=== PATIENT | male | born 1995 | race Caucasian/White ===

== ENCOUNTER 2022-11-20 20:17 | Emergency (ER) | payer OTHER, SELFPAY ==
--- NOTE | ~2022-11-20 | CT_ITS ---
EXAMINATION: CT HEAD WITHOUT CONTRAST CLINICAL INFORMATION: Headache status-post injury. COMPARISON: None available. TECHNIQUE: Contiguous axial imaging was performed from the skull base to vertex without intravenous administration of contrast. This CT examination was performed using dose optimization techniques as appropriate, variously including the following: *Automated exposure control *Adjustment of mA and/or kV according to patient size (this includes techniques or standardized protocols for targeted exams where dose is matched to indication/reason for exam; i.e. extremities or head) *Use of iterative reconstruction technique DLP: 1039 mGy-cm (head and facial bones) FINDINGS: There is no acute intracranial hemorrhage or evidence of territorial infarction. No abnormal mass effect or midline shift is seen. Bolanos to white matter differentiation is well preserved. There is no abnormal attenuation within the brain parenchyma. The ventricles are normal in size. No extra-axial fluid collections are identified. The calvarium and scalp soft tissues are normal. The middle ear cavity and mastoid air cells are clear. There is mild bilateral ethmoid and maxillary sinusitis. A small osteoma is seen posteriorly within the left maxillary sinus. CT/CT facial bones wo IV con IMPRESSION: 1. No acute intracranial pathology. 2. There is paranasal sinusitis. EXAMINATION: CT FACIAL BONES WITHOUT CONTRAST CLINICAL INFORMATION: Facial pain status-post injury. COMPARISON: None available. TECHNIQUE: Contiguous axial imaging was performed through the facial bones without intravenous administration of contrast. Multiplanar reformatted images are submitted. This CT examination was performed using dose optimization techniques as appropriate, variously including the following: *Automated exposure control *Adjustment of mA and/or kV according to patient size (this includes techniques or standardized protocols for targeted exams where dose is matched to indication/reason for exam; i.e. extremities or head) *Use of iterative reconstruction technique DLP: As above. FINDINGS: The paranasal sinuses are well aerated. The ostiomeatal units are patent. No fracture or dislocation is seen. The zygomatic arches are intact. The mandible is intact. The mandibular fossa is intact. There is asymmetric anterior subluxation of the left mandibular condyle within the glenoid fossa (15:32 and 16:151). The orbits and orbital contents are symmetric and unremarkable. The lamina papyracea are intact. There is mild bilateral ethmoid and maxillary sinusitis. The mastoid coils air cells are well aerated and clear. IMPRESSION: 1. There is anterior subluxation of the left mandibular condyle within the glenoid fossa. No keshav dislocation is seen. 2. There is no acute fracture noted. 3. There is paranasal sinusitis.
[2022-11-20 20:22] VITALS: BP 135/64; PULSE 82; RESP 18; TEMP 36.9; O2SAT 98; BMI 28.9
--- NOTE | 2022-11-20 20:34 | ED_ITS ---
HPI - General Adult General Chief complaint: General Medical Stated complaint: jaw pain Time Seen by Provider: 11/20/22 21:06 Source: patient Mode of arrival: ambulatory Limitations: no limitations History of Present Illness HPI narrative: Patient is a 27 year old assigned male at with no reported medical history presenting to the emergency department today with left sided jaw pain. Patient states that he was boxing earlier today and got punched while his mouth was open. Patient states that now his jaw feels like it is uneven and he cannot chew appropriately. Patient denies any dizziness, lightheadedness, abdominal pain, nausea, vomiting, fever, chills, blurry vision, double vision, loss of vision, chest pain, difficulty breathing, shortness of breath, back pain, night sweats, pain with urination, increased urinary frequency, increased urinary urgency, blood in his urine or stool, syncope or a near syncopal episode, bowel incontinence, bladder incontinence, bowel retention, bladder retention, or any other complaints at this time. Onset (ago): hour(s) Location: face Radiation: non-radiation Severity: mild Severity scale (1-10): 3 Quality: aching and dull Pain Consistency: constant Relieving factors: none Exacerbating factors: none Associated symptoms: denies other symptoms Treatments prior to arrival: none Related Data Previous Rx's Medication Instructions Recorded ibuprofen 800 mg tablet 800 mg PO Q8H PRN pain #14 tabs 11/20/22 Allergies Allergy/AdvReac Type Severity Reaction Status Date / Time No Known Allergies Allergy Unverified 01/16/20 19:52 [No Known Allergies*] Review of Systems Constitutional: Constitutional: Reports no additional constitutional complaints, Denies chills, Denies fever(s) and Denies night sweats Eyes: Eyes: Reports no additional eye complaints, Denies blurry vision, Denies change in vision, Denies diplopia, Denies eye discharge, Denies loss of vision and Denies eye pain ENT: Denies dizziness Comments: jaw pain Cardiovascular: Cardiovascular: Reports no additional cardiovascular complaints, Denies chest pain, Denies lightheadedness, Denies Loss of Consciousness and Denies dyspnea Respiratory: Respiratory: Reports no additional respiratory complaints and Denies dyspnea Gastrointestinal: Gastrointestinal: Reports no additional gastrointestinal complaints, Denies abdominal pain, Denies melena, Denies hematochezia, Denies change in bowel habits and Denies change in stool character Genitourinary: Genitourinary: Reports no additional male genitourinary complaints, Denies hematuria, Denies oliguria, Denies difficulty urinating, Denies dysuria, Denies urinary frequency, Denies urinary hesitancy, Denies urinary incontinence and Denies urinary urgency Musculoskeletal: Musculoskeletal: Reports no additional musculoskeletal complaints, Denies numbness and Denies tingling Neurologic: Denies dizziness, Denies loss of vision, Denies numbness and Denies tingling Psychiatric: Psychiatric: Reports no additional psychiatric complaints Endocrine: Endocrine: Reports no additional endocrine complaints Hematologic/Lymphatic: Hematologic/Lymphatic: Reports no additional hematologic/lymphatic complaints Allergic/Immunologic: Allergic/Immunologic: Reports no additional allergic/immunologic complaints PMFSH Past Medical History Attestation statement: The following information was validated with the patient. Source: old records reviewed and nursing notes reviewed Social History Social History Advance Directives: No Advance Directives Information Provided: No Physical Exam ED Vital Signs: Vital Signs - 24 hr 11/20/22 20:22 Temperature 98.5 F Pulse Rate 82 Respiratory Rate 18 Blood Pressure 135/64 Pulse Oximetry 98 Oxygen Delivery Method Room Air BMI result Body Mass Index 28.9 Const General: cooperative, no acute distress, alert and awake Nutritional Appearance: well nourished Orientation/consciousness: patient oriented x3 Limitations: no limitations HENMT Head: Yes normal to inspection and Yes atraumatic Ears: hearing grossly normal bilaterally and external ears normal General nose exam: Normal external nose present, no nasal discharge noted and no epistaxis Face and sinus: Yes normal facial exam, No abrasion and No laceration Mouth: Normal oral and palatal mucosa present, no drooling and no muffled voice Eyes General: appearance normal, both eyes and all related structures Periorbital: periorbital findings normal Eyelids: Yes eyelids normal Conjunctivae: conjunctivae normal Pupils: Equal, round and reactive pupils present EOM: EOMs intact bilaterally Neck Neck: Yes normal visual inspection, Yes full ROM and Yes no lymphadenopathy Chest Chest palpation & inspection: normal inspection of the chest Resp Effort & Inspection: normal respiratory effort and able to speak in complete sentences GI Inspection: Yes normal to inspection Neuro General: patient oriented x3 and moves all extremities Cranial nerves: Yes Equal, round and reactive pupils present Cognition (Neuro): normal cognition Motor exam (neuro): 5/5 motor strength present throughout Sensory Exam: Normal double simultaneous stimulation for sensation Coordination: [id number] test normal Extrem General: Yes normal to inspection, Yes full ROM and Yes capillary refill normal Psych Appearance: grossly normal Mental Status: mental status grossly normal Affect: normal affect Attitude: cooperative Thought process: Normal thought process present Thought content: Normal thought content present Insight: Good insight present (Psych) Course Course Course Narrative: This is an RME: Additional HPI, ROS, PE not included below will be deferred to primary provider. Patient is a 27-year-old male presents emergency department for evaluation of left jaw pain sustained earlier today while sparring. pain made worse with attempting to open mouth and while eating. decreased ROM. No anticoagualnts, no LOC, no neck pain or extremity tingling/ numbness Plan: CT Facial bones/ head Medications Administered Discontinued Medications Generic Name Dose Route Start Last Admin Trade Name Freq PRN Reason Stop Dose Admin Diazepam 2.5 mg 11/20/22 22:29 11/20/22 22:38 Diazepam 10 Mg/2 Ml Cartridge IM 11/20/22 22:30 2.5 mg STAT STA Administration Procedures Orthopedic Joint Reduction Joint #1: Time Out Performed: Yes Side: left Joint Reduction Location: other (jaw) Analgesia: other (IM valium) Technique used: direct manipulation Post-reduction neuro exam: intact Post-reduction vascular: intact Post Reduction X-Ray Obtained: No Splint Applied: No Patient Tolerated Procedure: well Medical Decision Making Medical Decision Making MDM Narrative: Patient is a 27 year old assigned male at with no reported medical history presenting to the emergency department today with left sided jaw pain. Patient's physical exam was unremarkable. Patient's head CT showed no acute process. Patient's facial bones CT showed an anterior subluxation of the left mandibular condyle within the glenoid fossa but no keshav dislocation seen. I explained my physical exam findings as well as all test results to the patient. I answered all questions asked by the patient. Patient received 2.5mg of IM Valium and his jaw was gently manipulated down and backwards which he stated helped his pain significantly. I stressed the importance of the patient taking his medication as prescribed. I stressed the importance of the patient following up with his primary care provider and with an oral maxilofacial surgeon. I stressed the importance of the patient returning to the emergency department immediately if his symptoms were to worsen or if he were to develop any dizziness, shortness of breath, difficulty breathing, chest pain, blurry vision, loss of vision, nausea, vomiting, abdominal pain, fever, chills, back pain, or any other complaints. Patient verbalized agreement and understanding with this treatment plan and discharge. Differential Diagnosis Differential Diagnoses: The differential diagnosis associated with the presentation includes Mandibular fracture Mandibular dislocation Jaw injury Independent Interpretation I performed an independent interpretation of an: CT Scan Interpretation: My interpretation is in agreement with the radiologist's impression of these imaging studies. EXAMINATION: CT HEAD WITHOUT CONTRAST CLINICAL INFORMATION: Headache status-post injury.? COMPARISON: None available. TECHNIQUE: Contiguous axial imaging was performed from the skull base to vertex without intravenous administration of contrast. This CT examination was performed using dose optimization techniques as appropriate, variously including the following: *Automated exposure control *Adjustment of mA and/or kV according to patient size (this includes techniques or standardized protocols for targeted exams where dose is matched to indication/reason for exam; i.e. extremities or head) *Use of iterative reconstruction technique DLP: 1039 mGy-cm (head and facial bones) FINDINGS: There is no acute intracranial hemorrhage or evidence of territorial infarction. No abnormal mass effect or midline shift is seen. Bolanos to white matter differentiation is well preserved. There is no abnormal attenuation within the brain parenchyma. The ventricles are normal in size. No extra-axial fluid collections are identified. The calvarium and scalp soft tissues are normal. The middle ear cavity and mastoid air cells are clear. There is mild bilateral ethmoid and maxillary sinusitis. A small osteoma is seen posteriorly within the left maxillary sinus. ? CT/CT facial bones wo IV con IMPRESSION: ? 1. No acute intracranial pathology. ? 2. There is paranasal sinusitis. ? EXAMINATION: CT FACIAL BONES WITHOUT CONTRAST ? CLINICAL INFORMATION: Facial pain status-post injury.? ? COMPARISON: None available. ? TECHNIQUE: Contiguous axial imaging was performed through the facial bones without intravenous administration of contrast. Multiplanar reformatted images are submitted. ? This CT examination was performed using dose optimization techniques as appropriate, variously including the following: *Automated exposure control *Adjustment of mA and/or kV according to patient size (this includes techniques or standardized protocols for targeted exams where dose is matched to indication/reason for exam; i.e. extremities or head) *Use of iterative reconstruction technique ? DLP: As above. ? FINDINGS: The paranasal sinuses are well aerated. The ostiomeatal units are patent. No fracture or dislocation is seen. The zygomatic arches are intact. The mandible is intact. The mandibular fossa is intact. There is asymmetric anterior subluxation of the left mandibular condyle within the glenoid fossa (15:32 and 16:151). The orbits and orbital contents are symmetric and unremarkable. The lamina papyracea are intact. There is mild bilateral ethmoid and maxillary sinusitis. The mastoid coils air cells are well aerated and clear. ? IMPRESSION: ? 1. There is anterior subluxation of the left mandibular condyle within the glenoid fossa. No keshav dislocation is seen. ? 2. There is no acute fracture noted. ? 3. There is paranasal sinusitis. Dictated By: Hany Byrd MD Signed By: Electronically signed by Hany Byrd MD 11/20/22 1495 Radiology Impression Discussion of test interpretation with radiology: I have reviewed the radiologist's reading. Discharge Plan Discharge Clinical Impression: Injury of jaw Patient Disposition: Home, Self-Care Instructions: Jaw Dislocation (ED), Temporomandibular Disorder (ED) Additional Instructions: Follow up with your primary care provider and an oral maxilofacial surgeon. Return to the emergency department immediately if your symptoms worsen or if you develop any dizziness, shortness of breath, difficulty breathing, chest pain, blurry vision, loss of vision, nausea, vomiting, abdominal pain, fever, chills, back pain, or any other complaints. Oral maxilofacial surgery information: [phone] [facility] [address] [address] Prescriptions: New ibuprofen 800 mg tablet 800 mg PO Q8H PRN (Reason: pain) Qty: 14 0RF Referrals: [facility] [facility] [Provider Group] (Call to establish and follow up with a primary care provider. If you already have a primary care provider, please follow up with them.) [facility] [place] [facility] [Provider [facility]] (Call to establish and follow up with a primary care provider. If you already have a primary care provider, please follow up with them.) [facility] [place] [facility] [Provider Group] (Call to establish and follow up with a primary care provider. If you already have a primary care provider, please follow up with them.) Stand Alone Forms: Work/School Release Discharge Date/Time: 11/20/22 23:32 Print Language: Nigerian
[2022-11-20] MEDS: diazePAM 10 MG/2 ML CARTRIDGE 2.5 MG IM (22:38)
== END 2022-11-20 23:32 | disposition home or self-care (01) ==
PROVIDERS: Emergency Provider Emergency Medicine
DX: S09.93XA Unspecified injury of face, initial encounter (principal); W50.0XXA Accidental hit or strike by another person, initial encounter; Y93.71 Activity, boxing; Y92.39 Other specified sports and athletic area as the place of occurrence of the external cause; Y99.9 Unspecified external cause status
CPT/HCPCS: 70450; 70486; 96372; 99281; 99284; J3360

== ENCOUNTER 2023-04-17 04:34 | Emergency (ER) | payer MEDICAID, SELFPAY ==
--- NOTE | ~2023-04-17 | XR_ITS ---
EXAMINATION: XR CHEST CLINICAL INFORMATION: Cough COMPARISON: None available. TECHNIQUE: 2 views of the chest were obtained. FINDINGS: Normal symmetric lung volumes. Streaky lingular opacity. No pleural effusion. No pneumothorax. Cardiomediastinal silhouette and pulmonary vascularity are within normal limits. No acute osseous abnormalities. XR/XR chest 2V IMPRESSION: Streaky lingular opacity could represent subsegmental atelectasis or infiltrate.
[2023-04-17] MEDS: Acetaminophen 325 MG TABLET 975 MG PO (04:50)
[2023-04-17 04:52] VITALS: BP 139/75; PULSE 116; RESP 20; TEMP 39.4; O2SAT 98; BMI 27.6
[2023-04-17 05:38] LABS: Influenza A PCR POSITIVE (Negative); Influenza B PCR NEGATIVE (Negative); Resp Syncy Virus RNA Qual PCR NEGATIVE (Negative); SARS COV2 PCR INHOUSE NEGATIVE (Negative)
[2023-04-17 06:16] VITALS: TEMP 37.9
--- NOTE | 2023-04-17 06:17 | PC.NURSE ---
fever has improved.
[2023-04-17 06:35] VITALS: TEMP 37.7
[2023-04-17 06:36] VITALS: PULSE 101; RESP 20; TEMP 37.7; O2SAT 97
--- NOTE | 2023-04-17 06:37 | PC.NURSE ---
resp even and unlabored. lung sounds cta. fever improved with tylenol given per jun. awaiting primary eval by ed provider.
--- NOTE | 2023-04-17 08:01 | ED.GENADULT ---
HPI - General Adult General Chief complaint: Upper Respiratory Symptoms Stated complaint: flu like symptoms Time Seen by Provider: 04/17/23 07:49 Source: patient Mode of arrival: ambulatory Limitations: no limitations History of Present Illness HPI narrative: Patient is a 27-year-old male presenting to the emergency department with complaint of non-productive cough for 1 month with new onset of fever, chills, body aches and headache for the past 2 days. Denies chest pain or palpitations. Denies abdominal pain, nausea, vomiting, diarrhea. MD complaint: Cough, fever Onset (ago): day(s) Location: chest Severity: moderate Quality: aching Pain Consistency: constant Relieving factors: rest Exacerbating factors: movement Associated symptoms: cough and fever/chills Treatments prior to arrival: none Related Data Previous Rx's Medication Instructions Recorded ibuprofen 800 mg tablet 800 mg PO Q8H PRN pain #14 tabs 11/20/22 azithromycin 250 mg tablet See Rx Instructions PO .COMPLEX #6 04/17/23 tabs benzonatate 100 mg capsule 100 mg PO TID PRN cough #14 caps 04/17/23 Allergies Allergy/AdvReac Type Severity Reaction Status Date / Time No Known Allergies Allergy Unverified 01/16/20 19:52 [No Known Allergies*] Review of Systems Review of Systems: As per HPI. Yes all other systems are reviewed and are negative Constitutional: Constitutional: Reports as per HPI [facility] Social History Social History Advance Directives: No Advance Directives Information Provided: Yes Physical Exam ED Vital Signs: Vital Signs - 24 hr 04/17/23 04:52 04/17/23 06:16 04/17/23 06:35 Temperature 102.9 F H 100.2 F 99.8 F Pulse Rate 116 H Respiratory Rate 20 Blood Pressure 139/75 Pulse Oximetry 98 Oxygen Delivery Method Room Air 04/17/23 06:36 04/17/23 06:36 Temperature 99.8 F Pulse Rate 101 H Respiratory Rate 20 Blood Pressure Pulse Oximetry 97 97 Oxygen Delivery Method Room Air Room Air BMI result Body Mass Index 27.6 Vital signs have been reviewed and appear to be correct. Blood pressure normal. Heart rate slightly tachycardic. Respiratory rate normal. Temperature febrile initially, improved with acetaminophen. Oxygen saturation normal. Const General: cooperative, healthy appearing and no acute distress Orientation/consciousness: oriented to person, oriented to place, oriented to time and patient oriented x3 Limitations: no limitations HENMT Head: Yes normocephalic and Yes atraumatic Ears: external ears normal General nose exam: Normal external nose present Face and sinus: Yes face symmetric Mouth: oropharynx normal and moist mucous membranes Throat: Yes uvula midline Eyes Pupils: Equal, round and reactive pupils present Neck Neck: Yes normal visual inspection and Yes supple Resp Effort & Inspection: normal respiratory effort and able to speak in complete sentences Auscultation: clear to auscultation bilaterally Cardio Rate: regular rate Rhythm: regular rhythm Heart sounds: S1 normal heart sound present and S2 normal heart sound present GI Palpation (GI): Soft to palpation and nontender Auscultation: normoactive bowel sounds General: Yes no CVA tenderness Back/Spine/Pelvis Back: no CVA tenderness Skin General skin exam: elasticity normal and turgor normal Neuro General: oriented to person, oriented to place, oriented to time, patient oriented x3, moves all extremities, no focal motor deficits and CN's II-XI intact bilaterally Cranial nerves: Yes Equal, round and reactive pupils present Cognition (Neuro): normal cognition Extrem General: Yes full ROM, Yes no pedal edema and Yes no calf tenderness Psych Mental Status: mental status grossly normal Affect: normal affect Thought process: Normal thought process present Medications Administered Discontinued Medications Generic Name Dose Route Start Last Admin Trade Name Freq PRN Reason Stop Dose Admin Acetaminophen 975 mg 04/17/23 04:39 04/17/23 04:50 Acetaminophen 325 Mg Tablet PO 04/17/23 04:40 975 mg ONCE ONE Administration Medical Decision Making Medical Decision Making [facility] Narrative: Patient is a 27-year-old male presenting to the emergency department with complaint of non-productive cough for 1 month with new onset of fever, chills, body aches and headache for the past 2 days. On exam patient is awake, A+Ox3, VS WNL, initially febrile which improved with acetaminophen, normal neurological exam without focal deficits, physical exam findings as above. Given reported symptoms and physical exam findings, initial differential includes viral illness, COVID, flu, RSV, bronchitis, pneumonia. Flu swab positive for influenza A. X-ray notable for lingular opacity. My interpretation is in agreement with the radiologist's interpretation. Patient updated on results and all questions answered. Given ongoing cough for 1 month and opacity on x-ray, will treat with course of azithromycin as well as benzonatate. Patient advised to isolate at home for the next 3 days and to wear mask while symptomatic. Patient offered treatment with Tamiflu which he declined. Instructed patient to follow-up with primary care provider as he will need repeat chest x-ray. Return precautions discussed at bedside. Patient verbalized understanding of and agreement with plan. Differential Diagnosis Differential Diagnoses: The differential diagnosis associated with the presentation includes As per [facility]. Lab Data [facility] Lab Attestation statement: I reviewed the patient's lab results. As per [facility]. Labs: Lab Results 04/17/23 Range/Units 04:58 Influenza Type A (PCR) POSITIVE A (Negative) Influenza Type B (PCR) NEGATIVE (Negative) RSV RNA Qual (PCR) NEGATIVE (Negative) SARS-CoV-2 RNA (RT-PCR) NEGATIVE (Negative) Independent Interpretation I performed an independent interpretation of an: Plain X-Ray Interpretation: Streaky lingular opacity on CXR Radiology Impression Discussion of test interpretation with radiology: I have reviewed the radiologist's reading. Radiologist Impression: XR/XR chest 2V IMPRESSION: Streaky lingular opacity could represent subsegmental atelectasis or infiltrate. External Record Review External record reviewed: Inpatient record, Office record and Outpatient record Prescription Management I considered prescription management with: Antiviral, Antibiotic and Other Discharge Plan Discharge Clinical Impression: Influenza Patient Disposition: Home, Self-Care Instructions: Influenza (DC), Flu Shot (Vaccine) for Adults (ED) Additional Instructions: You are evaluated in the emergency department today for cough and fever. You tested positive for influenza A. This is a viral illness which will resolve on its own with rest and time. Your chest x-ray did show an area which could be early pneumonia so you are being treated with a course of antibiotics. Please complete the full course of antibiotics as prescribed. You are also being prescribed cough medicine which you can use every 8 hours as needed. Follow-up with your primary care provider this week as you will need a repeat chest x-ray in several weeks. We recommend you take 650 mg of Tylenol or 600 mg of ibuprofen every 6 hours as needed for fever or discomfort. If necessary, you can alternate these medications every 3 hours. For example, at noon take Tylenol, then at 3:00 p.m. take ibuprofen, then at 6:00 p.m. take Tylenol, etc. Return to the emergency department a you develop chest pain, palpitations, worsening shortness of breath or difficulty breathing, fever not improved with Tylenol ibuprofen, persistent vomiting or any other concerning symptoms. Prescriptions: New azithromycin 250 mg tablet See Rx Instructions .ROUTE .COMPLEX Qty: 6 0RF Rx Instructions: For 250 mg dose pack: take 500 mg today (day 1), then 250 mg for 4 days (days 2-5) benzonatate 100 mg capsule 100 mg PO TID PRN (Reason: cough) Qty: 14 0RF No Action ibuprofen 800 mg tablet 800 mg PO Q8H PRN (Reason: pain) Qty: 14 0RF Stand Alone Forms: Work/School Release
== END 2023-04-17 08:16 | disposition home or self-care (01) ==
PROVIDERS: Emergency Provider Emergency Medicine
DX: J10.1 Influenza due to other identified influenza virus with other respiratory manifestations (principal); R05.9 Cough, unspecified; R50.9 Fever, unspecified; R51.9 Headache, unspecified; Z20.828 Contact with and (suspected) exposure to other viral communicable diseases; Z20.822 Contact with and (suspected) exposure to COVID-19
CPT/HCPCS: 0241U; 71046; 99283; 99284